=== PATIENT | male | born 1950 ===

== ENCOUNTER 2018-09-21 09:08 | Day surgery (SDC) | payer MEDICARE ==
[2018-09-21 09:49] VITALS: BMI 25.7
[2018-09-21 10:10] VITALS: TEMP 97.3
--- NOTE | 2018-09-21 11:35 | CP.SDSHP ---
Same Day Surgery H & P - History Proposed Procedure: COLONSCOPY Pre-Op Diagnosis: SEE NOTES - Previous Medical/Surgical History Misc: Other Pain: 2.Mild Pain Previous Surgical History: A/P - Allergies Allergies: Allergies No Known Allergies Allergy (Verified 09/21/18 09:49) - Physical Exam General Appearance: N Vital Signs: Vital Signs 09/21/18 10:03 Temperature 97.3 F L Pulse Rate 77 Respiratory 19 Rate Blood Pressure 122/68 O2 Sat by Pulse 98 Oximetry Mental Status: Alert & Oriented x3 Neuro: WNL Heart: WNL Lungs: WNL GI: WNL - {Optional Preform as Required} Breast: WNL Abdomen: Other Rectal: WNL Integument: WNL : WNL Ortho: Other ENT: WNL - Impression Pt. Evaluated Today:Candidate for Anesthesia & Procedure: Yes - Date & Time Time: 11:35 Short Stay Discharge - Short Stay Discharge Admitting Diagnosis/Reason for Visit: ENCOUNTER FOR SCREENING FOR MALIGNANT NEOPLASM OF Disposition: HOME/ ROUTINE Referrals: Dmitri Salazar MD [Primary Care Provider] -
[2018-09-21] MEDS ORDERED: Propofol 10 mg/ml Inj (20 ML) ONE (11:47)
[2018-09-21] MEDS ORDERED: Lidocaine Hydrochloride 5 ML INJ ONE (12:11)
[2018-09-21 12:16] VITALS: O2SAT 100
[2018-09-21 12:47] VITALS: RESP 13
[2018-09-21] MEDS ORDERED: Belladonna-Phenobarbital PO ONE (12:50)
[2018-09-21 13:02] VITALS: BP 106/70; PULSE 70
== END 2018-09-21 12:50 | disposition home or self-care (01) ==
LOC: C.ENDO 09:08
PROVIDERS: ATTEND Specialist
DX: Z12.11 Encounter for screening for malignant neoplasm of colon (principal); K64.8 Other hemorrhoids
CPT/HCPCS: 45378; J2704